=== PATIENT | male | born 2000 | race Caucasian/White ===

== ENCOUNTER 2020-11-02 15:47 | Outpatient (REF) | payer BC, SELFPAY ==
[2020-11-08 11:42] LABS: COVID-19 RT-PCR UVMMC Result Negative (Negative)
== END 2020-11-02 16:07 ==
LOC: LBN 15:47
PROVIDERS: Visit Provider Pediatrics
DX: Z11.59 Encounter for screening for other viral diseases (principal)
CPT/HCPCS: U0003

== ENCOUNTER 2020-11-09 21:43 | Emergency (ER) | payer BC, SELFPAY ==
[2020-11-09 21:51] VITALS: BP 124/69; PULSE 87; RESP 16; TEMP 37.3; O2SAT 100
[2020-11-09] MEDS: Fluorescein STRIPS 100/BOX 1 MG (21:51)
[2020-11-09] MEDS: Tetracaine 0.5% 4 ML BTL (21:52)
--- NOTE | 2020-11-09 22:19 | W.ED.GENAD ---
Discharge Plan Disposition Patient Disposition: HOME Condition: Good Discharge Details Clinical Impression: Foreign body in eyeball, left, Corneal rust ring of left eye, Abrasion of cornea, left Primary Care Provider: Carlita,Local ED Provider: Eliot Haq Home Meds and New Rx's Prescriptions: Continued albuterol sulfate 90 mcg/actuation HFA aerosol inhaler 2 puff inhalation Q4H PRN (Reason: shortness of breath or wheezing) Qty: 18 RF: 0 fluoxetine 60 mg tablet 60 mg PO DAILY Qty: 60 RF: 2 Discharge Instructions Instructions: Corneal Abrasion (ED) Additional Instructions: The small amount of metal that was in the right was removed with a needle, the subsequent rust ring was then removed with the bur. It should take 24 to 48 hours for your eye pain to improve. Please keep using the erythromycin ointment every 8-12 hours as needed, take Tylenol and Motrin as needed for pain. Please follow-up closely with your eye day care supervisor. Please always remember to wear eye protection. If you notice any worsening of your symptoms, or any new symptoms such as vision changes, vomiting, diarrhea, fever, chills, shortness of breath, chest pain, numbness, weakness, or fainting , please return immediately to the emergency department for reevaluation. Please follow up with your primary care provider as soon as possible for reassessment and reevaluation. As always, it was a pleasure participating in your medical care today. Referrals: [facility] [Outside] Medical Decision Making 19-year-old male whose tetanus is notably up-to-date presents today for evaluation of foreign body in the left eye. Patient states that last night he was working on a car when he got some rest in his left eye. Pain is continued throughout the day. He denies any significant vision change aside from mild irritation. He has had this happen before. No other complaints at this time. No other modifying factors. Exam demonstrates a positive metal/was foreign body in the left lateral aspect at the 3 o'clock position for the eye, he also has evidence of an associated rust ring. No other foreign bodies under the lids. Using TB needle the foreign body was completely removed, and then after this using the optical bur the rust ring was removed. Repeat exam continues to demonstrate negative Ricky sign. Patient tolerated this well. Erythromycin ointment was applied. Recommend follow-up on an outpatient basis with ophthalmology. I have extensively reviewed the treatment plan and discharge instructions with the patient. I have addressed all patient concerns at this time. The patient was made aware of what symptoms to monitor for that would warrant a return to the emergency department. Discussed the plan with the patient, they demonstrate verbal understanding and agreement with our assessment and plan at this time. HPI General Date/Time Provider Initiated Documentation: 11/09/20 21:44. HPI Narrative: 19-year-old male whose tetanus is notably up-to-date presents today for evaluation of foreign body in the left eye. Patient states that last night he was working on a car when he got some rest in his left eye. Pain is continued throughout the day. He denies any significant vision change aside from mild irritation. He has had this happen before. No other complaints at this time. No other modifying factors. Related Data Home Medications Medication Instructions Recorded Confirmed fluoxetine 60 mg tablet 60 mg PO DAILY #60 tab 07/01/20 11/09/20 albuterol sulfate 90 mcg/actuation 2 puff INHALATION Q4H PRN #18 g 11/02/20 11/09/20 aerosol inhaler Previous Rx's Medication Instructions Recorded fluoxetine 60 mg tablet 60 mg PO DAILY #60 tab 07/01/20 albuterol sulfate 90 mcg/actuation 2 puff INHALATION Q4H PRN #18 g 11/02/20 aerosol inhaler Allergies Allergy/AdvReac Type Severity Reaction Status Date / Time No Known Allergies Allergy Unverified 11/09/20 22:05 General Stated Complaint: EyeProblem SVETLANA: 3 Review of Systems All systems reviewed & are unremarkable except as noted in HPI and below PFSH Family History Mother No problems noted. Father No problems noted. Sister Cystic fibrosis Social History Smoking/Tobacco Use Status: Never Smoking risk assessment performed?: Yes Alcohol Intake: current Alcohol Intake frequency: a few times a week Drug use: Never Do you feel safe at home: Yes Do you feel safe in your relationship?: Yes Exam Narrative Exam Narrative: 1.Const: Well-nourished, Well-developed, appearing stated age 2.Eyes: Left eye: EOMI, PERRL, Peripheral vision intact. No nystagmus. Fundoscopic exam shows normal optic discs and normal vasculature. No clinical signs of septal/orbital cellulitis, no redness around the eye, no proptosis. No hyphema, no signs of trauma around the eye, no periorbital emphysema. No sluggishness of the pupil. No ophthalmoplegia. No afferent pupillary defect. Fluorescein exam positive for uptake in the 3 o'clock position in the left eye on the lateral aspect with clear evidence of fonseca and a eusebio/metal foreign body and a associated rust ring, negative Ricky sign. Visual acuity as documented in chart. Normal. 3.ENT: Atraumatic external nose and ears. Moist MM. Neck: Symmetric, trachea midline, No thyromegaly. 4.CVS: +S1/S2, No murmurs or gallops. Peripheral pulses 2+ and equal in all extremities. Brisk capillary refill in all extremities. 5.RESP: Unlabored respiratory effort. Clear to auscultation bilaterally. No wheezes rales or rhonchi 6.GI: Soft, Nontender/Nondistended, No hepatosplenomegaly. No guarding or rebound. 7.MSK: Normocephalic/Atraumatic, Extremities w/o deformity or ttp No cyanosis or clubbing, Normal movement of all extremities 8.Skin: Warm, Dry. No rashes or lesions. 9.Neuro: global vp creative + content marketing II-XII grossly intact. Sensation grossly intact, no focal neurologic deficits. 10.Psych: (AAO) x3. Appropriate mood and affect Course Vital Signs Vital signs: Vital Signs Temperature 37.3 C 11/09/20 21:51 Pulse 87 11/09/20 21:51 Respiratory Rate 16 11/09/20 21:51 Blood Pressure 124/69 11/09/20 21:51 Pulse Oximetry 100 11/09/20 21:51 Temperature 37.3 C 11/09/20 21:51 Temperature Source Skin 11/09/20 21:51 Pulse 87 11/09/20 21:51 Respiratory Rate 16 11/09/20 21:51 Respiratory Effort Non-Labored 11/09/20 22:02 Blood Pressure 124/69 11/09/20 21:51 Blood Pressure Position Sitting 11/09/20 21:51 Pulse Oximetry 100 11/09/20 21:51 Oxygen Delivery Method Room Air 11/09/20 21:51 Oxygen Flow Rate 0 11/09/20 21:51 Pain Level 7 11/09/20 21:51 Procedures FB Removal Eye Time Out performed: Yes Location: eye (L) Topical anesthetic used: tetracaine Foreign body: metal Evidence of corneal penetration: No Technique: needle and electric palmer Procedure performed under: direct visualization with magnification and slit-lamp Post-procedure medication: ophthalmic antibiotic Patient tolerated procedure: well
[2020-11-09] MEDS: Erythromycin Ophth Oint 3.5 GM TUBE (22:23)
== END 2020-11-09 22:20 | disposition home or self-care (01) ==
PROVIDERS: Emergency Provider Student in an Organized Health Care Education/Training Program
DX: S05.02XA Injury of conjunctiva and corneal abrasion without foreign body, left eye, initial encounter (principal); T15.92XA Foreign body on external eye, part unspecified, left eye, initial encounter
CPT/HCPCS: 99283

== ENCOUNTER 2021-03-16 19:26 | Outpatient (REF) | payer BC, SELFPAY ==
[2021-03-16 19:20] LABS: Hemoglobin A1C 4.9 % (<5.7)
[2021-03-18 09:36] LABS: Hepatitis B Surface Ag Negative (Negative)
[2021-03-18 10:13] LABS: HIV-1/2 Ag & Ab Screen Negative (Negative)
[2021-03-18 10:20] LABS: Hepatitis C Ab w Rflx HCV PCR Negative (Negative)
[2021-03-18 10:51] LABS: Syphilis Serology (RPR) Negative (Negative)
== END 2021-03-16 19:27 | disposition home or self-care (01) ==
LOC: NCHCN 19:26
PROVIDERS: Visit Provider Family Medicine
DX: Z00.00 Encounter for general adult medical examination without abnormal findings (principal); Z11.59 Encounter for screening for other viral diseases; Z11.4 Encounter for screening for human immunodeficiency virus [HIV]; Z13.1 Encounter for screening for diabetes mellitus
CPT/HCPCS: 86803; 87340; 87389; 83036; 86592

== ENCOUNTER 2022-01-11 17:25 | Outpatient (REF) | payer BC, SELFPAY | END 2022-01-11 17:26 | disposition home or self-care (01) | LOC: NCHCN 17:25 | PROVIDERS: Visit Provider Family Medicine ==

== ENCOUNTER 2022-12-13 18:22 | Emergency (ER) | payer MEDICAID, SELFPAY ==
[2022-12-13 18:25] VITALS: BP 120/57; PULSE 82; RESP 18; TEMP 37; O2SAT 100
--- NOTE | 2022-12-13 18:30 | DI.RAD_ITS ---
Exam(s) XR SHOULDER RT COMPLETE 2+V EXAM: XR SHOULDER RT COMPLETE 2+V CLINICAL HISTORY: Pain, R/O Dislocation. TECHNIQUE: 2D digital imaging was performed. COMPARISON: No exams were available for comparison FINDINGS: Five views: There is no evidence of fracture or dislocation. No abnormal soft tissue calcifications. No degener ative changes in the glenohumeral joint. No AC joint separation. Benign bone island in the humeral head. Clavicle unremarkable. IMPRESSION: No significant osseous findings. DATA REPOSITORY: RADIATION DOSE DELIVERED:
--- NOTE | 2022-12-13 18:39 | W.ED.GENAD ---
Discharge Plan Disposition Patient Disposition: Home Condition: Stable Discharge Details Clinical Impression: Sprain of right shoulder Primary Care Provider: Dalton Borrego ED Provider: Colleen Garcia Home Meds and New Rx's Prescriptions: No Action albuterol sulfate 90 mcg/actuation HFA aerosol inhaler 2 puff inhalation Q4H PRN (Reason: shortness of breath or wheezing) Qty: 18 0RF Rx Instructions: 2 puffs every 4 hours as needed fluoxetine 60 mg tablet 60 mg PO DAILY Qty: 60 2RF Discharge Instructions Instructions: Shoulder Sprain (ED) Additional Instructions: Wear the sling as needed for comfort. Rest, ice, compression, elevation. Advance as tolerated. Please follow-up with orthopedics if no improvement in the next 1 to 2 weeks. Please take Tylenol or Ibuprofen with food every 4-6 hours as needed for pain and swelling. Referrals: Parmjit Neal MD [ [facility] STAFF PHYSICIAN] - 2 weeks Medical Decision Making 22-year-old male with a past medical history of asthma depression GERD anxiety presents with right shoulder pain after lifting a back seat while working on a car. He reports he heard a pop and had severe pain. He did take some Motrin around 4:00 this afternoon. No obvious deformity noted distal CMS is intact. X-ray shoulder ordered. I did offer analgesic which patient declined at this time. See x-ray result noted below. There is a questionable lucency on the acromion,. Will place patient in a sling instructed on RICE procedures and follow-up with Ortho if continued pain. Discussed x-ray result with patient and verbalizes understanding. This text was generated using naaya dictation system, please disregard any oddities of phrase or misspellings. Imaging Data Radiologic Study: Imaging: X-Ray Radiologist's impression: Addendum created by Jose Mcpherson MD on 12/13/2022 7:15 PM Eastern Time ([place] & [place]): Faint lucency in the right acromion best appreciated on the 2nd image may be projectional. Correlate for point tenderness. Differential possibilities include os acromiale with partial fusion Initial Report created on 12/13/2022 7:02 PM Eastern Time ([place] & [place]): PROCEDURE INFORMATION: Exam: XR Right Shoulder Exam date and time: 12/13/2022 6:51 PM Age: 22 years old Clinical indication: Injury or trauma; Fall; Blunt trauma (contusions or hematomas); Shoulder; Right; Injury details: Pain, R/O dislocation TECHNIQUE: Imaging protocol: Radiologic exam of the Right shoulder. Views: 2 or more views. COMPARISON: No relevant prior studies available. FINDINGS: Bones/joints: Normal. Soft tissues: Normal. IMPRESSION: No acute findings. HPI General Mode of arrival: ambulatory. Date/Time Provider Initiated Documentation: 12/13/22 18:34. Limitations to Documentation: no limitations. Information obtained by: patient, RN notes reviewed and old records reviewed. HPI Narrative: 22-year-old male with a past medical history of asthma depression GERD anxiety presents with right shoulder pain after lifting a back seat while working on a car. He reports he heard a pop and had severe pain. He did take some Motrin around 4:00 this afternoon. No obvious deformity noted distal CMS is intact. He does have pain with supination and shoulder adduction. Denies any neck pain or any other associated symptoms. Past medical history includes asthma, depression anxiety GERD insomnia. Related Data Home Medications Medication Instructions Recorded Confirmed fluoxetine 60 mg tablet 60 mg PO DAILY #60 tabs 07/01/20 11/09/20 albuterol sulfate 90 mcg/actuation 2 puff inhalation Q4H PRN 11/02/20 11/09/20 aerosol inhaler shortness of breath or wheezing #18 grams Previous Rx's Medication Instructions Recorded fluoxetine 60 mg tablet 60 mg PO DAILY #60 tabs 07/01/20 albuterol sulfate 90 mcg/actuation 2 puff inhalation Q4H PRN 11/02/20 aerosol inhaler shortness of breath or wheezing #18 grams Allergies Allergy/AdvReac Type Severity Reaction Status Date / Time No Known Allergies Allergy Unverified 11/09/20 22:05 General Stated Complaint: Orthopedic SVETLANA: 4 Review of Systems All systems reviewed & are unremarkable except as noted in HPI and below Musculoskeletal Musculoskeletal: Reports as per HPI and Reports arthralgias (Right shoulder) PFSH All Active Problems (Updated 12/13/22 @ 19:50 by Colleen Garcia NP) Sprain of right shoulder (Acute) Asthma (Acute 06/16/14) intermmittent Depression with anxiety (Acute 06/16/14) Gastroesophageal reflux disease (Acute 03/25/12) Insomnia (Acute 06/16/14) Family History Mother No problems noted. Father No problems noted. Sister Cystic fibrosis Social History Smoking/Tobacco Use Status: Never Smoking risk assessment performed?: Yes Alcohol Intake: current Alcohol Intake frequency: a few times a week Drug use: Never Do you feel safe at home: Yes Do you feel safe in your relationship?: Yes Exam Extrem Right upper extremity: normal to inspection, normal capillary refill and shoulder/upper arm Details: normal to inspection, tenderness Location: of the A-C joint and abnormal ROM Details: pain with active ROM (External rotation) Details: in ADduction and in extension; no ecchymosis; no cyanosis and no edema Shoulder/upper arm images: 1. Pinpoint tenderness Course Vital Signs Vital signs: Vital Signs Temperature 37.0 C 12/13/22 18:25 Pulse 82 12/13/22 18:25 Respiratory Rate 18 12/13/22 18:25 Blood Pressure 120/57 L 12/13/22 18:25 Pulse Oximetry 100 12/13/22 18:25 Temperature 37.0 C 12/13/22 18:25 Temperature Source Tympanic 12/13/22 18:25 Pulse 82 12/13/22 18:25 Respiratory Rate 18 12/13/22 18:25 Respiratory Effort 12/13/22 18:28 Blood Pressure 120/57 L 12/13/22 18:25 Blood Pressure Position Supine 12/13/22 18:25 Pulse Oximetry 100 12/13/22 18:25 Oxygen Delivery Method Room Air 12/13/22 18:25 Oxygen Flow Rate 0 12/13/22 18:25 Pain Level 8 12/13/22 18:25 PAWSS Have you Been Recently Intoxicated or Drunk Within the Last 30 days?: Yes Have you Ever Experienced Previous Episodes of Alcohol Withdrawal?: No Have you ever Experienced Withdrawal Seizures?: No Have you ever Experienced Delirium Tremens(DT)s?: No Have you ever undergone Alcohol Rehabilitation Treatment (i.e, inpt ot outpatient treatment programs)?: No Have you ever Experienced Blackouts?: No Have you ever Combined Alcohol with other Downers within the last 90 days?: No Have you ever Combined Alcohol with any other Substance of Abuse during the last 90 days?: No Positive Blood Alcohol level on Presentation? [PCS.BAL]: No Evidence of Increased Autonomic Activity (i.e. HR>120, tremor, sweating, agitation, nausea)?: No Result: 1
--- NOTE | 2022-12-13 19:03 | DI.VRAD_ITS ---
Addendum created by Jose Mcpherson MD on 12/13/2022 7:15:21 PM EST: Faint lucency in the right acromion best appreciated on the 2nd image may be projectional. Correlate for point tenderness. Differential possibilities include os acromiale with partial fusion Initial report created on 12/13/2022 7:02:34 PM EST: PROCEDURE INFORMATION: Exam: XR Right Shoulder Exam date and time: 12/13/2022 6:51 PM Age: 22 years old Clinical indication: Injury or trauma; Fall; Blunt trauma (contusions or hematomas); Shoulder; Right; Injury details: Pain, R/O dislocation TECHNIQUE: Imaging protocol: Radiologic exam of the Right shoulder. Views: 2 or more views. COMPARISON: No relevant prior studies available. FINDINGS: Bones/joints: Normal. Soft tissues: Normal. IMPRESSION: No acute findings. Dictated and Authenticated by: Jose Mcpherson MD. Ordering:NEWTON Macias MD
[2022-12-13 20:01] VITALS: BP 112/69; PULSE 92; RESP 16; O2SAT 97
== END 2022-12-13 20:06 | disposition home or self-care (01) ==
PROVIDERS: Emergency Provider Registered Nurse Emergency; PCP Family Medicine
DX: S43.401A Unspecified sprain of right shoulder joint, initial encounter (principal); J45.909 Unspecified asthma, uncomplicated; X50.0XXA Overexertion from strenuous movement or load, initial encounter
CPT/HCPCS: 99283; 73030; 99282

== ENCOUNTER 2023-10-10 21:10 | Emergency (ER) | payer MEDICAID, SELFPAY ==
[2023-10-10 21:14] VITALS: BP 127/69; PULSE 61; RESP 20; TEMP 36.9; O2SAT 99
--- NOTE | 2023-10-10 21:19 | ED.GENADUL_ITS ---
Discharge Plan Disposition Patient Disposition: Home Condition: Stable Discharge Details Clinical Impression: Strep pharyngitis Primary Care Provider: Dalton Borrego ED Provider: Eliot Kong Home Meds and New Rx's Prescriptions: New amoxicillin 500 mg tablet 500 mg PO BID 10 Days Qty: 17 0RF Continued albuterol sulfate 90 mcg/actuation HFA aerosol inhaler 2 puff inhalation Q4H PRN (Reason: shortness of breath or wheezing) Qty: 18 0RF Rx Instructions: 2 puffs every 4 hours as needed fluoxetine 60 mg tablet 60 mg PO DAILY Qty: 60 2RF Discharge Instructions Instructions: Strep Throat (ED) Additional Instructions: You were seen in the emergency department for your sore throat for 3 days without cough, your throat is very red and I am treating empirically for strep pharyngitis. Please watch for excessive drooling as we discussed over severe vocal changes with pain with swallowing, and uvula deviation. Please take Tylenol and ibuprofen as needed for pain, salt water gargles 3 times per day for relief, tea with honey for symptomatic relief of sore throat. Referrals: Dalton Borrego [Primary Care Provider] - Medical Decision Making This dictation utilizes [id number] dictation software and may contain unedited grammatical errors. 22 y/o M presents to ED today with a chief complaint of 3 days of sore throat. Onset and characteristics include severe sore throat without any signs of upper respiratory infection, tonsillar swelling with minor exudate on the right tonsil, empiric strep. Patients' medical history: Noncontributory. Family and social history: Noncontributory. Pertinent exam findings / vital signs include uvula midline, no major tonsillar swelling or angioedema, severe posterior oropharynx erythema with some exudate on the right tonsil, empiric strep diagnosis. Differential / pathologies of concern include strep pharyngitis. Diagnostic studies of: -None, would not impact treatment. 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 ED Course: Patient counseled on likely strep throat and watching out for signs of epiglottitis with excessive drooling or peritonsillar abscess with uvular deviation and severe vocal changes, the patient will take Tylenol and ibuprofen and finish his course of amoxicillin. Findings not consistent with peritonsillar abscess or epiglottitis. Disposition of strep pharyngitis. Patient verbalized understanding of the plan and return to ED criteria and engaged in shared decision making. Medical Records Medical records reviewed: Yes I reviewed the patient's medical records. HPI General Date/Time Provider Initiated Documentation: 10/10/23 21:19 . HPI Narrative: 22 year-old male presents to ED today by POV/ambulating with a chief complaint of sore throat, severe with onset 3 days ago. Quality described as very sore throat, painful to swallow, painful to talk, no radiation to excessive drooling, significant vocal changes, high fever, denies cough, denies shortness of breath. Severity is described as 6-7/10. Palliating factors include nothing specific attempted. Provoking factors include nothing specific. Patient not anticoagulated. Related Data Home Medications Medication Instructions Recorded Confirmed fluoxetine 60 mg tablet 60 mg PO DAILY #60 tabs 07/01/20 12/26/22 albuterol sulfate 90 mcg/actuation 2 puff inhalation Q4H PRN 11/02/20 12/26/22 aerosol inhaler shortness of breath or wheezing #18 grams amoxicillin 500 mg tablet 500 mg PO BID strep pharyngitis 10 10/10/23 days #17 tabs Previous Rx's Medication Instructions Recorded fluoxetine 60 mg tablet 60 mg PO DAILY #60 tabs 07/01/20 albuterol sulfate 90 mcg/actuation 2 puff inhalation Q4H PRN 11/02/20 aerosol inhaler shortness of breath or wheezing #18 grams amoxicillin 500 mg tablet 500 mg PO BID strep pharyngitis 10 10/10/23 days #17 tabs Allergies Allergy/AdvReac Type Severity Reaction Status Date / Time No Known Allergies Allergy Unverified 11/09/20 22:05 General Stated Complaint: Sorethroat SVETLANA: 4 Review of Systems All systems reviewed & are unremarkable except as noted in HPI and below PFSH All Active Problems (Updated 10/10/23 @ 21:38 by CHARISSA Correa) Strep pharyngitis (Acute) No-show for appointment (Acute) Asthma (Acute 06/16/14) intermmittent Depression with anxiety (Acute 06/16/14) Gastroesophageal reflux disease (Acute 03/25/12) Insomnia (Acute 06/16/14) Family History Mother No problems noted. Father No problems noted. Sister Cystic fibrosis Social History Smoking/Tobacco Use Status: Never Smoking risk assessment performed?: Yes Alcohol Intake: current Alcohol Intake frequency: a few times a week Drug use: Never Housing: house Do you feel safe at home: Yes Do you feel safe in your relationship?: Yes Exam Narrative Exam Narrative: GENERAL APPEARANCE: Well-nourished, non-toxic, awake and alert, atraumatic, no acute distress. SKIN: Warm, pink, dry, intact, without rashes/lesions/ulcerations. HEAD: Normocephalic, atraumatic, normal hair distribution for gender/age. EYES: Pupils PERRLA, EOMs intact without nystagmus, normal conjunctiva, no exudates on lids/lashes. ENT: Nares patent, no circumoral cyanosis, no facial swelling, severe erythema to posterior oropharynx with bilateral tonsillar swelling with some exudate on the right, uvula midline, managing secretions without issue, no large tonsillar lymphadenopathy, moderate lymphadenopathy in anterior cervical chain NECK: Supple, trachea midline, painless cervical ROM. LUNGS/CHEST: Non-labored respirations, normal A/P diameter, symmetrical expansion, no chest wall deformity HEART (CV/PV): Regular rate and rhythm without murmur, no peripheral edema, no JVD. ABDOMEN: Soft, non-distended, no guarding. MSK: Normal ROM, no swelling/deformity to bilateral UEs or LEs, moving all extremities without weakness, no cyanosis, spine midline without tenderness, normal curvature. NEURO: Mental Status AAOx4 - alert to person, place, time, events No facial droop, no forehead involvement. Motor: No focal weakness - strength 5/5 in bilateral UEs and LEs, proximal and distal, symmetric. Sensory: sensation intact to light touch globally. Gait normal: patient ambulated without ataxia into ED room. PSYCH: euthymic, cooperative, pleasant, appropriate speech Course Vital Signs Vital signs: Vital Signs Temperature 36.9 C 10/10/23 21:14 Pulse 61 10/10/23 21:14 Respiratory Rate 20 10/10/23 21:14 Blood Pressure 127/69 10/10/23 21:14 Pulse Oximetry 99 10/10/23 21:14 Temperature 36.9 C 10/10/23 21:14 Pulse 61 10/10/23 21:14 Respiratory Rate 20 10/10/23 21:14 Respiratory Effort Normal 10/10/23 21:17 Blood Pressure 127/69 10/10/23 21:14 Pulse Oximetry 99 10/10/23 21:14 PAWSS Have you Been Recently Intoxicated or Drunk Within the Last 30 days?: No Have you Ever Experienced Previous Episodes of Alcohol Withdrawal?: No Have you ever Experienced Withdrawal Seizures?: No Have you ever Experienced Delirium Tremens(DT)s?: No Have you ever undergone Alcohol Rehabilitation Treatment (i.e, inpt ot outpatient treatment programs)?: No Have you ever Experienced Blackouts?: No Have you ever Combined Alcohol with other Downers within the last 90 days?: No Have you ever Combined Alcohol with any other Substance of Abuse during the last 90 days?: No Positive Blood Alcohol level on Presentation? [PCS.BAL]: No Evidence of Increased Autonomic Activity (i.e. HR>120, tremor, sweating, agitation, nausea)?: No Result: 0
[2023-10-10] MEDS: Amoxicillin 500 MG CAP PO ×3 (21:52→22:15)
== END 2023-10-10 21:53 | disposition home or self-care (01) ==
PROVIDERS: Emergency Provider Physician Assistant; PCP Family Medicine
DX: J02.0 Streptococcal pharyngitis (principal)
CPT/HCPCS: 99283; 99284

== ENCOUNTER 2024-06-11 11:11 | Emergency (ER) | payer MEDICAID, SELFPAY ==
[2024-06-11 11:14] VITALS: BP 109/64; PULSE 78; RESP 16; TEMP 36.3; O2SAT 99
--- NOTE | 2024-06-11 11:53 | W.ED.GENAD ---
Discharge Plan Disposition Patient Disposition: Home Condition: Stable Discharge Details Clinical Impression: Laceration of hand, left Primary Care Provider: Dalton Borrego ED Provider: Colleen Garcia Home Meds and New Rx's Prescriptions: No Action albuterol sulfate 90 mcg/actuation HFA aerosol inhaler 2 puff inhalation Q4H PRN (Reason: shortness of breath or wheezing) Qty: 18 0RF Rx Instructions: 2 puffs every 4 hours as needed Discharge Instructions Instructions: Laceration Repair With Stitches ED, Wound Care ED Additional Instructions: Keep clean and dry for the next 12 to 24 hours. Have sutures removed in 7 days. You may come back here to have sutures removed or urgent care or PCP at your convenience. After 24 hours you may wash under running soap and water allow to air dry at least 2 hours a day. Return for signs of infection including increased red streaks, drainage, swelling inability to flex or extend your fingers or move your fingers or any concerns. Keep it covered while working. Please take Tylenol or Ibuprofen with food every 4-6 hours as needed for pain and swelling. Follow up with primary care provider in 3-5 days. Return to ED sooner if any worsening or concerns. Referrals: Dalton Borrego [Primary Care Provider] - 1 week Discharge Data Discharge Date/Time-TO BE ENTERED AT DEPARTURE: 06/11/24 14:14 HPI General Mode of arrival: ambulatory. Date/Time Provider Initiated Documentation: 06/11/24 11:25. Limitations to Documentation: no limitations. Information obtained by: patient, RN notes reviewed and old records reviewed. HPI Narrative: 23-year-old the ER with chief complaint of left hand laceration on the dorsum which occurred approximately 2 hours prior to arrival. He was doing some stone work and his left hand was pushed against a rock. He has approximately 1 cm laceration to the dorsum of his hand, please see diagram, bleeding is controlled upon arrival. Last TDAP was 2015. Related Data Home Medications ?Medication ?Instructions ?Recorded ?Confirmed albuterol sulfate 90 mcg/actuation 2 puff inhalation Q4H PRN 15/20 06/11/24 aerosol inhaler shortness of breath or wheezing #18 grams Previous Rx's ?Medication ?Instructions ?Recorded albuterol sulfate 90 mcg/actuation 2 puff inhalation Q4H PRN 12/15/20 aerosol inhaler shortness of breath or wheezing #18 grams Allergies Allergy/AdvReac Type Severity Reaction Status Date / Time No Known Allergies Allergy Unverified 06/11/24 11:25 General Stated Complaint: Laceration SVETLANA: 4 Review of Systems Integumentary/Breasts Skin/Breast: Reports wounds (Laceration dorsum of left hand while doing some stone work) Exam Const General: cooperative, healthy appearing, well developed and well groomed Nutritional Appearance: average body habitus and well nourished Orientation: alert, awake and oriented x3 Resp Effort & Inspection: normal respiratory effort and able to speak in complete sentences Auscultation: clear to auscultation bilaterally Extrem General: normal to inspection, full ROM and capillary refill normal Right upper extremity: normal to inspection, full ROM and normal capillary refill Left upper extremity: hand Details: normal capillary refill, neuromotor exam normal, neurosensory exam normal, normal ROM of fingers and laceration dorsal hand dorsal aspect mid Details: linear, contaminated, involving subcutaneous tissue, with motor nerve function intact and with sensation intact Hand/finger images: 1. Approximately 1 cm laceration linear, through the dermis, underlying anatomy intact. Bleeding controlled with pressure, distal CMS intact intact range of motion and motor. Able to extend and flex the fingers without difficulty. Course Vital Signs Vital signs: Vital Signs Temperature 36.3 C L 06/11/24 11:14 Pulse 78 06/11/24 11:14 Respiratory Rate 16 06/11/24 11:14 Blood Pressure 109/64 06/11/24 11:14 Pulse Oximetry 99 06/11/24 11:14 Temperature 36.3 C L 06/11/24 11:14 Pulse 78 06/11/24 11:14 Respiratory Rate 16 06/11/24 11:14 Respiratory Effort Normal, Non-Labored 06/11/24 11:26 Blood Pressure 109/64 06/11/24 11:14 Blood Pressure Position Sitting 06/11/24 11:14 Pulse Oximetry 99 06/11/24 11:14 Oxygen Delivery Method Room Air 06/11/24 11:14 Oxygen Flow Rate 0 06/11/24 11:14 Pain Level 3 06/11/24 11:14 Procedures Laceration Laceration 1: Site: hand Side (If applicable): left Size (cm): 1 Description: linear and contaminated Depth: simple, single layer Local anesthetic: Lidocaine 1%, with Epi and other anesthetic (Topical let) Amount of anesthesia used (mL): 3 Pre-repair: wound explored and irrigated extensively Skin layer closed with: nylon Size (cm): 4-0 Number of sutures: 3 Technique: simple, interrupted Medical Decision Making 23-year-old the ER with chief complaint of left hand laceration on the dorsum which occurred approximately 2 hours prior to arrival. He was doing some stone work and his left hand was pushed against a rock. He has approximately 1 cm laceration to the dorsum of his hand, please see diagram, bleeding is controlled upon arrival. Range of motion within normal limits, he does have some tenderness with extension to his index finger he is able to flex it fully. Distal cap refill less than 2 seconds. Denies any numbness or tingling. No other associated symptoms or concerns. Last tetanus was 2015 we will give him a booster today. Will plan on 2 sutures, Laceration cleaned with chlorhexidine scrub, nothing sized with topical let which was on for at least an hour, infiltrated with 1% lidocaine with epinephrine, anesthesia achieved. Cleaned with saline and chlorhexidine. Wound was well-approximated with #3 simple interrupted sutures. 4 point 0 Ethilon sutures used. Discussed home care strict return instructions to watch for signs of infection and to have sutures removed in approximately 7 days. Patient verbalized understanding. Instructed him to keep covered while at work allow to air dry at least 2 hours a day. Patient discharged with the above-mentioned instructions in hemodynamically stable alert and oriented condition. This text was generated using [employer] dictation system, please disregard any oddities of phrase or misspellings. Quality:SDOH Health Related Social Needs: No Data to Display [facility] All Active Problems (Updated 06/11/24 @ 14:01 by Colleen Garcia NP) Laceration of hand, left (Acute) No-show for appointment (Acute) Asthma (Acute 06/16/14) intermmittent Depression with anxiety (Acute 06/16/14) Gastroesophageal reflux disease (Acute 03/25/12) Insomnia (Acute 06/16/14) Family History Mother No problems noted. Father No problems noted. Sister Cystic fibrosis Social History (Reviewed 12/13/22 @ 18:42 by BREANNA Villeda Smoking/Tobacco Use Status: Current every day Tobacco Type: smokeless tobacco Smoking risk assessment performed?: Yes Alcohol Intake: current Alcohol Intake frequency: a few times a week Drug use: Never Substance use type: does not use Housing: house Do you feel safe at home: Yes Do you feel safe in your relationship?: Yes PAWSS Have you Been Recently Intoxicated or Drunk Within the Last 30 days?: No Have you Ever Experienced Previous Episodes of Alcohol Withdrawal?: No Have you ever Experienced Withdrawal Seizures?: No Have you ever Experienced Delirium Tremens(DT)s?: No Have you ever undergone Alcohol Rehabilitation Treatment (i.e, inpt ot outpatient treatment programs)?: No Have you ever Experienced Blackouts?: No Have you ever Combined Alcohol with other Downers within the last 90 days?: No Have you ever Combined Alcohol with any other Substance of Abuse during the last 90 days?: No Positive Blood Alcohol level on Presentation? [PCS.BAL]: No Evidence of Increased Autonomic Activity (i.e. HR>120, tremor, sweating, agitation, nausea)?: No Result: 0
[2024-06-11] MEDS: Lidocaine/Epinephri/Tetracaine Topical Gel 3 ML TP (12:04)
[2024-06-11] MEDS: Lidocaine 1% Multi-Dose W/EPI 1/100,000 10 ML VIAL IJ (14:12)
== END 2024-06-11 14:14 | disposition home or self-care (01) ==
PROVIDERS: Emergency Provider Registered Nurse Emergency; PCP Family Medicine
DX: S61.412A Laceration without foreign body of left hand, initial encounter (principal); Z23 Encounter for immunization; W22.8XXA Striking against or struck by other objects, initial encounter
CPT/HCPCS: 12001; 90471; 90715; J2004

== ENCOUNTER 2024-06-19 09:37 | Emergency (ER) | payer MEDICAID, SELFPAY ==
[2024-06-19 09:42] VITALS: BP 113/59; PULSE 83; RESP 16; TEMP 37; O2SAT 98
--- NOTE | 2024-06-19 09:57 | ED.GENADUL_ITS ---
Discharge Plan Disposition Patient Disposition: Home Condition: Improving Discharge Details Chief Complaint: SutureRem Clinical Impression: Visit for suture removal Primary Care Provider: Dalton Borrego ED Provider: Brad Sykes Home Meds and New Rx's Prescriptions: No Action albuterol sulfate 90 mcg/actuation HFA aerosol inhaler 2 puff inhalation Q4H PRN (Reason: shortness of breath or wheezing) Qty: 18 0RF Rx Instructions: 2 puffs every 4 hours as needed Discharge Instructions Instructions: Stitches Removal HPI General Date/Time Provider Initiated Documentation: 06/19/24 09:43 . HPI Narrative: 23-year-old male presents for suture removal 3 sutures in the left hand Related Data Home Medications ?Medication ?Instructions ?Recorded ?Confirmed albuterol sulfate 90 mcg/actuation 2 puff inhalation Q4H PRN 15/20 06/19/24 aerosol inhaler shortness of breath or wheezing #18 grams Previous Rx's ?Medication ?Instructions ?Recorded albuterol sulfate 90 mcg/actuation 2 puff inhalation Q4H PRN 11/02/20 aerosol inhaler shortness of breath or wheezing #18 grams Allergies Allergy/AdvReac Type Severity Reaction Status Date / Time No Known Allergies Allergy Unverified 06/11/24 11:25 General Stated Complaint: SutureRem SVETLANA: 4 Exam Narrative Exam Narrative: Well-healing laceration to dorsum of left hand, 3 sutures removed, no purulence no fluctuance, full range of motion of fingers warm well-perfused Course Vital Signs Vital signs: Vital Signs Temperature 37.0 C 06/19/24 09:42 Pulse 83 06/19/24 09:42 Respiratory Rate 16 06/19/24 09:42 Blood Pressure 113/59 L 06/19/24 09:42 Pulse Oximetry 98 06/19/24 09:42 Temperature 37.0 C 06/19/24 09:42 Temperature Source Temporal Artery Scan 06/19/24 09:42 Pulse 83 06/19/24 09:42 Respiratory Rate 16 06/19/24 09:42 Respiratory Effort Normal, Non-Labored 06/19/24 09:43 Blood Pressure 113/59 L 06/19/24 09:42 Blood Pressure Position Sitting 06/19/24 09:42 Pulse Oximetry 98 06/19/24 09:42 Oxygen Delivery Method Room Air 06/19/24 09:42 Oxygen Flow Rate 0 06/19/24 09:42 Pain Level 2 06/19/24 09:48 Medical Decision Making 23-year-old male presents for suture removal 3 sutures removed from dorsum of left hand, neurovascular exam of limb intact. No signs of infection Quality:SDOH Health Related Social Needs: No Data to Display PFSH All Active Problems (Updated 06/19/24 @ 10:02 by Brad Sykes MD) Visit for suture removal (Acute) Laceration of hand, left (Acute) No-show for appointment (Acute) Asthma (Acute 06/16/14) intermmittent Depression with anxiety (Acute 06/16/14) Gastroesophageal reflux disease (Acute 03/25/12) Insomnia (Acute 06/16/14) Family History Mother No problems noted. Father No problems noted. Sister Cystic fibrosis Social History Smoking/Tobacco Use Status: Current every day Tobacco Type: smokeless tobacco Smoking risk assessment performed?: Yes Alcohol Intake: current Alcohol Intake frequency: a few times a week Drug use: Never Substance use type: does not use Housing: house Do you feel safe at home: Yes Do you feel safe in your relationship?: Yes
== END 2024-06-19 10:07 | disposition home or self-care (01) ==
PROVIDERS: Emergency Provider Emergency Medicine; PCP Family Medicine
DX: Z48.02 Encounter for removal of sutures (principal)

== ENCOUNTER 2025-09-09 22:18 | Emergency (ER) | payer MEDICAID, SELFPAY ==
--- NOTE | 2025-09-09 22:15 | RT.EKG_ITS ---
APPROVED REPORT Exam: Resting ECG Reason for Exam: Chest Pain Patient Location: E HR:69 bpm ECG Measurements Heart Rate 69 AXIS IA 179 P 60 QRSd 94 QRS 12 QT 392 T 48 QTc 419 Conclusion Sinus rhythm...normal P axis, V-rate 60- 99 ST elev, probable normal early repol pattern...ST elevation, age<55 no reciporocal changes to suggest occlusive IN
[2025-09-09 22:23] VITALS: BP 131/81; PULSE 82; RESP 18; TEMP 36.5; O2SAT 100
[2025-09-09 22:25] VITALS: RESP 18
[2025-09-09 22:54] LABS: Abs Immature Grans 0.03 10^3/uL (0.0-0.06); HCT 42.0 % (40.0-50.0); HGB 14.3 g/dL (13.5-17.5); Immature Grans % 0.3 %; MCH 29.2 pg (27.0-33.0); MCHC 34.0 % (32.0-36.0); MCV 86 fL (80-95); MPV 10.0 fL (8.0-11.0); Platelet Count 256 10^3/uL (130-400); RBC 4.89 10^6/uL (4.36-5.78); RDW 11.9 % (11.8-14.1); RDW-SD 37.2 fL; WBC 10.05 10^3/uL (4.4-10.8)
[2025-09-09] MEDS: MYLANTA 30 ML, LIDOCAINE 2% VISCOUS UD 15 ML PO (22:56)
[2025-09-09] MEDS: Sucralfate 1 GM TAB PO (22:56)
[2025-09-09 23:02] LABS: ESR < 1 mm/hr (0-15)
--- NOTE | 2025-09-09 23:05 | ED.GENADUL_ITS ---
Discharge Plan Disposition Patient Disposition: Home Condition: Good Discharge Details Clinical Impression: Chest pain Primary Care Provider: Dalton Borrego ED Provider: Mylene Diaz Home Meds and New Rx's Prescriptions: Continued albuterol sulfate 90 mcg/actuation HFA aerosol inhaler 2 puff inhalation Q4H PRN (Reason: shortness of breath or wheezing) Qty: 18 0RF Rx Instructions: 2 puffs every 4 hours as needed Discharge Instructions Instructions: Chest Pain, Adult ED Additional Instructions: -Your labs, chest xray, and ultrasound are all reassuring. We are not sure what is causing your chest pain; it is very important that you followup with your primary care doctor. -Call your primary care doctor in the morning to schedule an appointment for within the following 72 hours to followup on your visit here. -You can take ibuprofen over the counter for pain; follow the directions on the bottle. -Return to the emergency department for new or worsening symptoms including new/different/worse chest pain, difficutly breathing, vomiting, feeling like you are going to pass out, or if you have any other concerns. Stand Alone Forms: Work Release HPI General Mode of arrival: ambulatory . Date/Time Provider Initiated Documentation: 09/09/25 22:21 . Limitations to Documentation: no limitations . Information obtained by: patient and old records reviewed (outside labs) . HPI Narrative: 24yo M with hx asthma presenting for chest pain. Pain started over 24 hours ago and has been constant since onset, waxing and waning in severity. Currently moderate. It is substernal and radiates to the right, feels mostly dull but somewhat sharp with breathing in. Seems worse when laying down. No improvement with leaning forward. Not exertional. Seen in [place] ED yesterday for same (went after work as that is closer); brings ED report including labs. Was discharged home with no clear diagnosis. Pain was initially better today but then began to worsen a few hours ago which prompted him to come to the ED tonight. He is otherwise in his usual state of health with no fevers, chills, rash, nausea, vomiting, abdominal pain, dysuria, hematuria, flank pain, palpitations, lightheadedness, syncope, LE edema, or other concerns. No parents or siblings with early OK, no family history of congenital cardiac disease or sudden unexpected at a young age, no hx of blood clots. Related Data Home Medications ?Medication ?Instructions ?Recorded ?Confirmed albuterol sulfate 90 mcg/actuation 2 puff inhalation Q 4H PRN 11/02/20 09/10/25 aerosol inhaler shortness of breath or wheez ing #18 grams Previous Rx's ?Medication ?Instructions ?Recorded albuterol sulfate 90 mcg/actuation 2 puff inhalation Q 4H PRN 11/02/20 aerosol inhaler shortness of breath or wheez ing #18 grams Allergies Allergy/AdvReac Type Severity Reaction Status Date / Time No Known Allergies Allergy Unverified 06/11/24 11:25 General Stated Complaint: Chest Pain SVETLANA: 3 Review of Systems Narrative: see HPI Exam Narrative Exam Narrative: General: Alert, well appearing, well nourished, in no acute distress. Head: Normocephalic, atraumatic Neck: Trachea midline, ?Neck supple. ENT: ?MMM.? Cardiac: ?RRR, no murmurs appreciated Resp: No respiratory distress. CTAB. Abd: ?Soft, non-distended, nontender Extremities: ?No deformities.? No peripheral edema. Neurologic: GCS 15. ? Moves all extremities freely against gravity Course Vital Signs Vital signs: Vital Signs Temperature 36.5 C 09/09/25 22:23 Pulse 82 09/09/25 22:23 Respiratory Rate 18 09/09/25 22:23 Blood Pressure 131/81 09/09/25 22:23 Pulse Oximetry 100 09/09/25 22:23 Temperature 36.5 C 09/09/25 22:23 Temperature Source Tympanic 09/09/25 22:23 Pulse 82 09/09/25 22:23 Respiratory Rate 18 09/09/25 22:25 Respiratory Effort Normal, Non-Labored 09/09/25 22:25 Respiratory Depth Normal 09/09/25 22:25 Respiratory Pattern Normal 09/09/25 22:25 Blood Pressure 131/81 09/09/25 22:23 Pulse Oximetry 100 09/09/25 22:23 Oxygen Delivery Method Room Air 09/09/25 22:23 Oxygen Flow Rate 0 09/09/25 22:23 Pain Level 5 09/09/25 22:25 Lab/Test Results Lab/Test Results: Laboratory Tests Range/Units 09/09/25 22:32 WBC (4.4-10.8) 10^3/uL 10.05 RBC (4.36-5.78) 10^6/uL 4.89 Hgb (13.5-17.5) g/dL 14.3 Hct (40.0-50.0) % 42.0 MCV (80-95) fL 86 MCH (27.0-33.0) pg 29.2 MCHC (32.0-36.0) % 34.0 RDW (11.8-14.1) % 11.9 Plt Count (130-400) 10^3/uL 256 MPV (8.0-11.0) fL 10.0 Immature Gran % % 0.3 Neutrophils % % 54.3 Lymphocytes % % 33.2 Monocytes % % 10.3 Eosinophils % % 1.6 Basophils % % 0.3 Nucleated RBC % (0.0-0.3) % 0.0 Absolute Neutrophils (1.2-6.7) 10^3/uL 5.45 Absolute Lymphocytes (1.2-3.4) 10^3/uL 3.34 Absolute Monocytes (0.1-0.8) 10^3/uL 1.04 H Absolute Eosinophils (0.0-0.7) 10^3/uL 0.16 Absolute Basophils (0.0-0.2) 10^3/uL 0.03 ESR (0-15) mm/hr < 1 Medical Decision Making 24yo M with hx of asthma presenting for substernal chest pain constant x 24 hours. Vital signs reassuring on arrival. Well appearing on exam, no respiratory distress and no wheeze to suggest asthma, no rash to suggest shingles. Labs from OSH yesterday for visit for similar presentation reviewed and show unremarkable CBC, CMP, lipase, troponin, dimer. EKG NSR, ST changes most suggestive of early repol (possibly pericarditis though less so) and not consistent with occlusive OK. Will treat with GI cocktail and carafate for possible GERD/peptic ulcer disease while awaiting results of workup. Very low suspicion for ACS, will hold off on ASA as would exacerbate GI etiology which seems more likely. Exam not suggestive acute gallbladder pathology/cholecysitis; would not get imaging at this time. -Labs reviewed as below, CBC reassuring with no leukoctysois or anemia, CMP with no actionable abnormalities, Mg normal, lipase not suggestive of pancreatitis, ESR & CRP normal and reassuring against pericarditis, dimer normal (would not further pursue PE or aortic dissection with CT imaging), BNP not suggestive of heart failure, initial troponin negative with one hour repeat also negative (lo w-risk HEART score, would not further pursue ACS) -Added on toradol for pain given negative troponins -CXR independently reviewed; no focal pneumonia or pneumothorax on my view, radiology read with no acute findings. -POCUS with no evident pericardial effusion On reassessment he reports good improvement in pain after toradol (had minimal change with GI cocktail). Unclear etiology of pain but with reassuring workup and improving symptoms, appropriate for outpatient followup with his PCP. Discharged home; discharge instructions and return precautions were reviewed with patient who verabalized understanding. All questions were answered and he is in full agreement with the plan. Lab Data Lab results reviewed: Yes I reviewed the patient's lab results. Labs: Laboratory Tests Range/Units 09/09/25 09/09/25 22:32 23:45 WBC (4.4-10.8) 10^3/uL 10.05 RBC (4.36-5.78) 10^6/uL 4.89 Hgb (13.5-17.5) g/dL 14.3 Hct (40.0-50.0) % 42.0 MCV (80-95) fL 86 MCH (27.0-33.0) pg 29.2 MCHC (32.0-36.0) % 34.0 RDW (11.8-14.1) % 11.9 Plt Count (130-400) 10^3/uL 256 MPV (8.0-11.0) fL 10.0 Immature Gran % % 0.3 Neutrophils % % 54.3 Lymphocytes % % 33.2 Monocytes % % 10.3 Eosinophils % % 1.6 Basophils % % 0.3 Nucleated RBC % (0.0-0.3) % 0.0 Absolute Neutrophils (1.2-6.7) 10^3/uL 5.45 Absolute Lymphocytes (1.2-3.4) 10^3/uL 3.34 Absolute Monocytes (0.1-0.8) 10^3/uL 1.04 H Absolute Eosinophils (0.0-0.7) 10^3/uL 0.16 Absolute Basophils (0.0-0.2) 10^3/uL 0.03 ESR (0-15) mm/hr < 1 D-Dimer (<500) ng/mlFEU 79 Sodium (136-145) mmol/L 141 Potassium (3.5-5.1) mmol/L 3.8 Chloride (98-107) mmol/L 103 Carbon Dioxide (21.0-32.0) mmol/L 28.5 Anion Gap (3-11) mmol/L 9.5 BUN (7-18) mg/dL 24 H Creatinine (0.70-1.30) mg/dL 0.9 Est GFR (CKD-EPI 2020) (mL/min/1.73m2) 120.80 Glucose (74-106) mg/dL 92 Calcium (8.5-10.1) mg/dL 9.4 Magnesium (1.8-2.4) mg/dL 2.4 Total Bilirubin (0.2-1.0) mg/dL 0.5 AST (15-37) U/L 10 L ALT (16-63) U/L 19 Alkaline Phosphatase (46-116) U/L 93 Troponin I (<or=76) ng/L < 4 < 4 C-Reactive Protein (<or=0.5) mg/dL < 0.50 NT-Pro-B Natriuret Pep (<300) pg/mL 38 Total Protein (6.4-8.2) g/dL 6.9 Albumin (3.4-5.0) g/dL 4.3 Lipase (<78) U/L 22 PFSH All Active Problems (Updated 09/10/25 @ 01:20 by Mylene Diaz MD) Chest pain (Acute) No-show for appointment (Acute) Asthma (Acute 06/16/14) intermmittent Depression with anxiety (Acute 06/16/14) Gastroesophageal reflux disease (Acute 03/25/12) Insomnia (Acute 06/16/14) Family History Mother No problems noted. Father No problems noted. Sister Cystic fibrosis Social History Smoking/Tobacco Use Status: Current every day Tobacco Type: smokeless tobacco Smoking risk assessment performed?: Yes Alcohol Intake: current Alcohol Intake frequency: a few times a week Drug use: Never Substance use type: does not use Housing: house Do you feel safe at home: Yes Do you feel safe in your relationship?: Yes
[2025-09-09 23:18] LABS: ALT 19 U/L (16-63); AST 10 U/L (15-37); Albumin 4.3 g/dL (3.4-5.0); Alkaline Phosphatase 93 U/L (46-116); Anion Gap 9.5 mmol/L (3-11); BUN 24 mg/dL (7-18); Bilirubin, Total 0.5 mg/dL (0.2-1.0); C-Reactive Protein < 0.50 mg/dL (<or=0.5); CO2 28.5 mmol/L (21.0-32.0); Calcium 9.4 mg/dL (8.5-10.1); Chloride 103 mmol/L (98-107); Estimated GFR 120.80 (mL/min/1.73m2); Glucose 92 mg/dL (74-106); Lipase 22 U/L (<78); Magnesium 2.4 mg/dL (1.8-2.4); NT-proBNP 38 pg/mL (<300); Potassium 3.8 mmol/L (3.5-5.1); Sodium 141 mmol/L (136-145); Total Protein 6.9 g/dL (6.4-8.2); Troponin I < 4 ng/L (<or=76)
[2025-09-09 23:21] LABS: D-Dimer 79 ng/mlFEU (<500)
--- NOTE | 2025-09-09 23:38 | DI.RAD_ITS ---
Exam(s) XR CHEST 2V PA LATERAL EXAM: XR CHEST 2V PA LATERAL CLINICAL HISTORY: Chest pain TECHNIQUE: 2D digital imaging was performed. Two views. COMPARISON: No exams were available for comparison FINDINGS: HEART: Normal size. Aorta: Not dilated. PULMONARY VASCULATURE: Normal. MEDIASTINUM: Unremarkable. LUNGS: Clear. PLEURAL SPACE: No pleural effusion or pneumothorax. BONE:Unremarkable for age. SOFT TISSUES: Unremarkable. IMPRESSION: No acute abnormality. The preliminary [facility] report was reviewed. DATA REPOSITORY: RADIATION DOSE DELIVERED:
[2025-09-10 00:09] LABS: Troponin I < 4 ng/L (<or=76)
[2025-09-10] MEDS: Ketorolac 15 MG/ML VIAL IVP (00:21)
--- NOTE | 2025-09-10 01:05 | DI.[facility]_ITS ---
PROCEDURE INFORMATION: Exam: XR Chest Exam date and time: 09/09/2025 11:36 PM Age: 24 years old Clinical indication: Chest pressure; Chest pain TECHNIQUE: Imaging protocol: Radiologic exam of the chest. Views: 2 views. COMPARISON: CR XR SHOULDER RT COMPLETE 2+V 12/13/2022 6:51 PM FINDINGS: Lungs: Unremarkable. No consolidation. Pleural spaces: Unremarkable. No pleural effusion. No pneumothorax. Heart/Mediastinum: Unremarkable. No cardiomegaly. Bones/joints: Unremarkable. IMPRESSION: No acute findings. Dictated and Authenticated by: Deon Thomason MD. Orderin Joe Chakraborty MD
[2025-09-10 01:48] VITALS: BP 134/88; PULSE 69; RESP 18; O2SAT 99
--- NOTE | 2025-10-07 22:23 | W.EDPROG ---
Date of service: 09/09/25 Time of Service: 22:45 Medical Decision Making POCUS exam documentation Discharge Plan Disposition Patient Disposition: Home Condition: Good Discharge Details Clinical Impression: Chest pain Primary Care Provider: Dalton Borrego ED Provider: Mylene Diaz Home Meds and New Rx's Prescriptions: Continued albuterol sulfate 90 mcg/actuation HFA aerosol inhaler 2 puff inhalation Q4H PRN (Reason: shortness of breath or wheezing) Qty: 18 0RF Rx Instructions: 2 puffs every 4 hours as needed Discharge Instructions Instructions: Chest Pain, Adult ED Additional Instructions: -Your labs, chest xray, and ultrasound are all reassuring. We are not sure what is causing your chest pain; it is very important that you followup with your primary care doctor. -Call your primary care doctor in the morning to schedule an appointment for within the following 72 hours to followup on your visit here. -You can take ibuprofen over the counter for pain; follow the directions on the bottle. -Return to the emergency department for new or worsening symptoms including new/different/worse chest pain, difficutly breathing, vomiting, feeling like you are going to pass out, or if you have any other concerns. Stand Alone Forms: Work Release Discharge Data Discharge Date/Time-TO BE ENTERED AT DEPARTURE: 09/10/25 01:49 POCUS Exam (ED) Limited Cardiac Exam DATE OF EXAM: 09/09/25 TIME OF EXAM: 22:45 PROVIDER THAT PERFORMED THE STUDY: Mylene Diaz REASON FOR EXAM: Chest pain VIEW OBTAINED: Parasternal long-axis, Parasternal short-axis and Subxiphoid PERTINENT FINDINGS/IMPRESSION: No pericardial effusion Exam complete
== END 2025-09-10 01:49 | disposition home or self-care (01) ==
PROVIDERS: Emergency Provider Student in an Organized Health Care Education/Training Program; PCP Family Medicine
DX: R07.9 Chest pain, unspecified (principal); J45.909 Unspecified asthma, uncomplicated; F17.290 Nicotine dependence, other tobacco product, uncomplicated
CPT/HCPCS: 00123; 36415; 80053; 83690; 85652; 93005; 93308; 96374; 99283; 71046; 83735; 83880; 84484; 85025; 85379; 86140; 93010; J1885